=== PATIENT | male | born 1965 | race Asian ===

== ENCOUNTER 2018-05-17 12:43 | Emergency (ER) | payer BC ==
[~2018-05-17] VITALS: Ht 172.7 cm; Wt 77.1 kg
[2018-05-17 12:49] VITALS: Ht 172.7 cm; Wt 77.1 kg
[2018-05-17 14:00] VITALS: BP 140/83
== END 2018-05-17 14:00 | disposition home or self-care (01) ==
LOC: ED 12:43
DX: S93.401A Sprain of unspecified ligament of right ankle, initial encounter (principal); I10 Essential (primary) hypertension; X50.1XXA Overexertion from prolonged static or awkward postures, initial encounter; Y93.89 Activity, other specified; Y92.89 Other specified places as the place of occurrence of the external cause; Y99.8 Other external cause status
CPT/HCPCS: Q0092